=== PATIENT | female | born 1995 | race Caucasian/White ===

== ENCOUNTER 2017-06-15 01:21 | Emergency (ER) | payer BC ==
[~2017-06-15] VITALS: Ht 160 cm; Wt 49.4 kg
[~2017-06-15 01:21] MED LIST: BCPILLS PO; CETI10TA73 PO; IBUP-1050 PO; PSEU60TA80 PO
[2017-06-15 01:33] VITALS: TEMP 36.8; Ht 160 cm; Wt 49.4 kg
[2017-06-15] MEDS ORDERED: PRED20TA2 PO (03:39)
[2017-06-15] MEDS ORDERED: EPP3/2 INJ (03:39)
[2017-06-15 03:50] VITALS: BP 122/72; PULSE 70; O2SAT 100
--- NOTE | 2017-06-16 01:23 | EMERGENCY ROOM VISIT NOTE ---
History First contact with patient: 01:40 Chief Complaint: ALLERGIC REACTION Stated Complaint: HIVES,ITCHING,SLIGHT THROAT TIGHTNESS Nursing Triage Summary: pt has hives to legs and arms. ate white rice from thai restaurant and chicken. pt reports she did not eat anything out of the ordinary for her. finished Augmentin today for mouth infection. no new soaps or detergents. 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 History of Present Illness The patient is a 21 year old female who presents to the Emergency Room with complaints of hives on her arms, legs, chest, and abdomen that began about 2 or 3 hours ago. The patient states that she just finished Augmentin this morning, and ate [place] food for dinner tonight. The patient does not have any known allergies. She took Benadryl which helped the itch but she continues with hives. She is not having throat pain, chest pain, abdominal pain, or pelvic pain. No nausea or vomiting. She rates her discomfort a 2/10. Review of Systems More than 10 systems were reviewed and otherwise negative with the exception of history of present illness. Past Medical/Surgical History Medical Problems: (1) No pertinent past medical history Surgical Problems: (1) No pertinent past surgical history Family History No pertinent family history Social History Smoking Status: Never Smoker Alcohol Use: none Marital Status: single Housing Status: lives with roommate Occupation Status: [employer] student Current/Historical Medications Scheduled Control Pills ( Control Pills), 1 TAB PO DAILY Epinephrine (Epipen 2-Dylan), 1 DOSE INJ DIRECTED Prednisone (Prednisone Tab), 2 TAB PO DAILY Physical Exam Vital Signs Date Time Temp Pulse Resp B/P (MAP) Pulse Ox O2 Delivery O2 Flow Rate FiO2 06/15/17 03:50 70 16 122/72 100 06/15/17 02:49 70 16 122/72 100 Room Air 06/15/17 01:41 99 Room Air 06/15/17 01:33 36.8 90 18 131/81 98 Room Air Physical Exam VITALS: Vitals are noted on the nurse's note and reviewed by myself. Vital signs stable. GENERAL: Well-developed, well-nourished, white female, who is in no acute distress and resting comfortably. Patient is cooperative with the examination. HEAD: Normocephalic atraumatic. MOUTH: Mucous membranes moist. Tonsils are not enlarged. Pharynx without erythema, blood, or exudate. Uvula midline. Airway patent. NECK: Supple without nuchal rigidity. No lymphadenopathy. No thyromegaly. Cervical spine is nontender. HEART: Regular rate and rhythm without murmurs gallops or rubs. LUNGS: Clear to auscultation bilaterally without wheezes, rales or rhonchi. No retractions or accessory muscle use. ABDOMEN: Positive normal bowel sounds x 4. Soft, nontender, without masses or organomegaly. No guarding or rebound tenderness. SKIN: The skin was with scant urticarial rash best appreciated on the proximal thighs Medical Decision & Procedures Medications Administered Medications (Trade) Dose Ordered Sig/Ronda Route Start Time Stop Time Status Last Admin Dose Admin Prednisone (PredniSONE TAB) 40 mg NOW STAT PO 06/15/17 01:47 06/15/17 01:48 DC 06/15/17 01:51 40 MG ED Course Physical exam and history were performed. Nursing notes, EMR, and Medication List were personally reviewed. Patient appears to have allergic reaction to unknown process. She evidently had [place] food dinner tonight, shortly after this she began with a rash. She also has been on antibiotics and took her last dose of medication this morning. She does not have any known allergies and has tolerated antibiotics in the past. The patient has taken Benadryl and was given a dose of prednisone here in the department. The patient was monitored for greater than 2 hours here in the department. She had moderate improvement of her symptoms after steroids, and felt much less itchy. She continues with a faint rash, although the color is improving. Overall she appears well for discharge home and will be given a continuation course of steroids. I'll also give her a prescription for an EpiPen. She is to follow with her PCP this week for further care and management. She was otherwise invited back to the ER with any new, worsening, or concerning symptoms. The chart was completed utilizing [employer] Voice Recognition Software. Grammatical errors, random word insertions, pronoun errors, and incomplete sentences are an occasional consequence of this system due to software limitations, ambient noise, and hardware issues. Any formal questions or concerns about the content, text, or information contained within the body of this dictation should be directly addressed to the provider for clarification. . Medical Decision Differential diagnosis: Etiologies such as allergic reaction, anaphylaxis, urticaria, Royal-Ortega syndrome, toxic epidermal necrolysis, erythema multiforme, cellulitis, as well as others were entertained. Impression Primary Impression: Allergic reaction Departure Information Dispostion Home / Self-Care Condition GOOD Prescriptions Epinephrine (EPIPEN 2-DYLAN) 0.3 Mg Inj 1 DOSE INJ DIRECTED for Allergic Reaction, #1 PKT 1 Refill Prov: Kenneth Butler PA-C 06/15/17 Prednisone (Prednisone Tab) 20 Mg Tab 2 TAB PO DAILY for 4 Days, #8 TAB Prov: Kenneth Butler PA-C 06/15/17 Referrals [facility] (PCP) Forms HOME CARE DOCUMENTATION FORM, IMPORTANT VISIT INFORMATION Patient Instructions My [facility] Additional Instructions You were seen and evaluated today on an emergency basis only. This is not a substitute for, or an effort to provide, complete comprehensive medical care. It is not possible to recognize and treat all injuries or illnesses in a single emergency department visit. For this reason it is recommended that you followup with your primary care physician/[facility] next week with any ongoing or persistent symptoms. Take prednisone as prescribed. Use Benadryl 25 mg every 6 hours as needed Use the EpiPen if needed. If you ever use the EpiPen please come straight to the closest emergency department. You are welcome to return to the emergency department anytime with new, worsening, or concerning symptoms.
== END 2017-06-15 03:51 | disposition home or self-care (01) ==
LOC: C.EDB 01:24
DX: T78.40XA Allergy, unspecified, initial encounter (principal); X58.XXXA Exposure to other specified factors, initial encounter